=== PATIENT | female | born 1985 | race Caucasian/White ===

== ENCOUNTER 2017-09-07 06:56 | Inpatient (IN) | payer SELFPAY ==
[2017-09-07] MEDS ORDERED: Sodium Chloride 0.9% 10 ML Syringe FLUSH PRN (07:13)
[2017-09-07] MEDS ORDERED: Nalbuphine 20 MG/1 ML Amp IVPUSH PRN (07:13)
[2017-09-07] MEDS ORDERED: Ondansetron 4 MG/2 ML SDV IVPUSH PRN ×2 (07:13→16:17)
--- NOTE | 2017-09-07 07:13 | PCM.LDHP ---
L&D History of Present Illness - General Date of Service: 09/07/17 Admit Problem/Dx: Admission Diagnosis/Problem Admission Diagnosis/Problem Source of Information: Patient History Limitations: Reports: No Limitations - History of Present Illness Introduction:: Patient is a 31-year-old at 40 and 1/7 weeks gestation by 28 week ultrasound which is consistent with patient's anticipated delivery date. She presents today for planned induction of labor. has been uncomplicated other than late entry to care. She is otherwise doing well today with no specific concerns or complaints. 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: : 3 Para: 2 LMP (Approximate): Other OB/BYN History: History of retained placenta with second delivery Social & Family History - Tobacco Use Smoking Status *Q: Never Smoker Second Hand Smoke Exposure: No - Alcohol Use Alcohol Use History: No - Recreational Drug Use Recreational Drug Use: Yes Drug Use in Last 12 Months: No Recreational Drug Type: Reports: Marijuana/Hashish - Living Situation & Occupation Living situation: Reports: H&P Review of Systems - Review of Systems: Review Of Systems: See Below General: Reports: No Symptoms Pulmonary: Reports: No Symptoms Cardiovascular: Reports: No Symptoms Gastrointestinal: Reports: No Symptoms Genitourinary: Reports: No Symptoms Musculoskeletal: Reports: No Symptoms Psychiatric: Reports: No Symptoms Neurological: Reports: No Symptoms L&D Exam - Exam Exam: See Below - OB Specific Contraction Intensity: Irritability Movement: Active Heart Tones: Present Heart Tones per Min: 135 Heart Rate (FHR) Variability: Moderate (6-25 bmp) Presentation: Vertex - Maya Score Maya Score Cervix Position: Midposition Maya Score Consistency: Soft Maya Score Effacement: 51-70% Maya Score Dilation: 3-4 cm Maya Score Infant's Station: -2 Maya Score Total: 8 - Exam General: Alert, Oriented, Cooperative Lungs: Clear to Auscultation, Normal Respiratory Effort Cardiovascular: Regular Rate, Regular Rhythm GI/Abdominal Exam: Soft, Non-Tender Genitourinary: Normal external exam Extremities: Normal Inspection Skin: Warm, Dry, Intact - Patient Data Result Diagrams: 09/07/17 07:40 - Problem List (1) 40 weeks gestation of SNOMED Code(s): 11827900 ICD Code: Z3A.40 - 40 WEEKS GESTATION OF Status: Acute Current Visit: Yes (2) Rh negative state in antepartum period SNOMED Code(s): 915679861 ICD Code: O09.899 - SUPERVISION OF OTHER HIGH RISK PREGNANCIES, UNSP TRIMESTER Status: Acute Current Visit: Yes (3) Elective induction of labor planned SNOMED Code(s): 293194057 ICD Code: [id number] - Status: Acute Current Visit: Yes Problem List Initiated/Reviewed/Updated: Yes Assessment/Plan Comment:: 31-year-old at 40 and 1/7 presents for induction of labor * CBC and type and screen * GBS negative, no need for antibiotics * Reviewed methods of induction and patient prefers AROM with Pitocin only if necessary * Pain management per patient preference * Anticipate
[2017-09-07] MEDS ORDERED: Oxytocin/Lactated Ringers 10 UNIT/1,000 ML BAG IV SCH (13:30)
[2017-09-07] MEDS: Lactated Ringers 1,000 ML IV SCH ×2 (14:05→16:27)
--- NOTE | 2017-09-07 14:06 | PCM.PREANE ---
Preanesthetic Assessment - Anesthesia/Transfusion/Family Hx Anesthesia History: Prior Anesthesia Without Reaction Family History of Anesthesia Reaction: No Transfusion History: No Prior Transfusion(s) - Review of Systems General: No Symptoms Pulmonary: No Symptoms Cardiovascular: No Symptoms Gastrointestinal: No Symptoms Neurological: No Symptoms Other: Reports: None - Physical Assessment NPO Status Date: 09/07/17 NPO Status Time: 12:00 O2 Sat by Pulse Oximetry: 99 Respiratory Rate: 15 Vital Signs: Last Vital Signs Temp 36.6 C 09/07/17 07:13 Pulse 91 09/07/17 07:13 Resp 15 09/07/17 07:13 BP 122/79 09/07/17 07:13 Pulse Ox 99 09/07/17 07:13 Height: 1.8 m Weight: 102.149 kg ASA Class: 2 Mental Status: Alert & Oriented x3 Airway Class: Mallampati = 1 Dentition: Reports: Normal Dentition Thyro-Mental Finger Breadths: 3 Mouth Opening Finger Breadths: 3 ROM/Head Extension: Full Lungs: Clear to Auscultation, Normal Respiratory Effort Cardiovascular: Regular Rate, Regular Rhythm - Lab Values: Laboratory Last Values WBC 7.37 K/mm3 (3.98-10.04) 09/07/17 07:40 RBC 3.94 M/mm3 (3.98-5.22) L 09/07/17 07:40 Hgb 10.6 gm/L (11.2-15.7) L 09/07/17 07:40 Hct 32.5 % (34.1-44.9) L 09/07/17 07:40 MCV 82.5 fl (79.4-94.8) 09/07/17 07:40 MCH 26.9 pg (25.6-32.2) 09/07/17 07:40 MCHC 32.6 g/dl (32.2-35.5) 09/07/17 07:40 RDW Std Deviation 40.6 fL (36.4-46.3) 09/07/17 07:40 Plt Count 221 K/mm3 (182-369) 09/07/17 07:40 MPV 10.4 fl (9.4-12.3) 09/07/17 07:40 Blood Type O NEGATIVE 09/07/17 07:40 Gel Antibody Screen Positive 12/27/17 07:40 - Allergies Allergies/Adverse Reactions: Allergies Allergy/AdvReac Type Severity Reaction Status Date / Time No Known Allergies Allergy Verified 09/07/17 08:09 - Blood Blood Available: No Product(s) Available: None - Anesthesia Plan Pre-Op Medication Ordered: None - Acknowledgements Anesthesia Type Planned: Epidural Pt an Appropriate Candidate for the Planned Anesthesia: Yes Alternatives and Risks of Anesthesia Discussed w Pt/Guardian: Yes Pt/Guardian Understands and Agrees with Anesthesia Plan: Yes PreAnesthesia Questionnaire Genitourinary History: Reports: Other (See Below) 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 OB/BYN History: History of retained placenta with second delivery Psychiatric History: Reports: Eating Disorders - Past Surgical History HEENT Surgical History: Reports: Oral Surgery Other HEENT Surgeries/Procedures: wisdom teeth 2002 - SUBSTANCE USE Smoking Status *Q: Never Smoker Tobacco Use Within Last Twelve Months: No Second Hand Smoke Exposure: No Recreational Drug Use History: Yes Recreational Drug Type: Reports: Marijuana/Hashish - HOME MEDS Home Medications: Home Meds Vit W-Ca,Fe,FA(<1 mg) [ Vitamins] 1 tab PO DAILY 09/07/17 [ History] - CURRENT (IN HOUSE) MEDS Current Meds: Current Medications Lactated Ringer's (Ringers, Lactated) 1,000 mls @ 40 mls/hr IV ASDIRECTED COBY Oxytocin/Lactated Ringer's (Pitocin In Lr 10 Units/1,000 Ml) 10 unit in 1,000 mls @ 12 mls/hr IV TITRATE COBY; 2 MUNITS/MIN PRN Reason: Protocol Nalbuphine HCl (Nubain) 10 mg IVPUSH Q2H PRN PRN Reason: Pain (moderate 4-6) Ondansetron HCl (Zofran) 4 mg IVPUSH Q4H PRN PRN Reason: Nausea/Vomiting Sodium Chloride (Saline Flush) 10 ml FLUSH ASDIRECTED PRN PRN Reason: Keep Vein Open
[2017-09-07] MEDS ORDERED: ePHEDrine 50 MG/ML SDV IVPUSH PRN (16:17)
[2017-09-07] MEDS ORDERED: diphenhydrAMINE 50 MG/ML SDV IVPUSH PRN (16:17)
[2017-09-07] MEDS ORDERED: fentaNYL 100 MCG/2 ML SDV EPIDUR PRN (16:17)
[2017-09-07] MEDS ORDERED: Bupivacaine/fentaNYL/NS 100 ML Bag EPIDUR SCH (16:30)
--- NOTE | 2017-09-07 17:01 | PCM.PNLD ---
Labor Progress Note - VS & Meds Vital Signs: Last Vital Signs Temp 36.6 C 09/07/17 07:13 Pulse 91 09/07/17 07:13 Resp 15 09/07/17 16:17 BP 122/79 09/07/17 07:13 Pulse Ox 99 09/07/17 16:17 Active Medications: Current Medications Diphenhydramine HCl (Benadryl) 25 mg IVPUSH Q6H PRN PRN Reason: Pruritis Ephedrine Sulfate (Ephedrine Sulfate) 5 mg IVPUSH ASDIRECTED PRN PRN Reason: Hypotension Fentanyl (Sublimaze) 100 mcg EPIDUR Q3H PRN PRN Reason: Pain Last Admin: 09/07/17 16:41 Dose: 100 mcg Fentanyl/Bupivacaine HCl (Fentanyl/Bupivacaine/Ns 2 Mcg-0.125% 100 Ml) 100 ml EPIDUR ASDIRECTED COBY Last Admin: 09/07/17 16:42 Dose: 100 ml Lactated Ringer's (Ringers, Lactated) 1,000 mls @ 40 mls/hr IV ASDIRECTED COBY Last Admin: 09/07/17 16:27 Dose: 999 mls/hr Oxytocin/Lactated Ringer's (Pitocin In Lr 10 Units/1,000 Ml) 10 unit in 1,000 mls @ 12 mls/hr IV TITRATE COBY; 2 MUNITS/MIN PRN Reason: Protocol Last Titration: 09/07/17 15:50 Dose: 6 munits/min, 36 mls/hr Nalbuphine HCl (Nubain) 10 mg IVPUSH Q2H PRN PRN Reason: Pain (moderate 4-6) Ondansetron HCl (Zofran) 4 mg IVPUSH Q4H PRN PRN Reason: Nausea/Vomiting Ondansetron HCl (Zofran) 4 mg IVPUSH ONETIME PRN PRN Reason: Nausea/Vomiting Sodium Chloride (Saline Flush) 10 ml FLUSH ASDIRECTED PRN PRN Reason: Keep Vein Open - Uterine Contractions Uterine Monitoring Mode: External [place] Contraction Intensity: Moderate to Strong - Monitoring Monitor Mode: External Ultrasound Heart Rate (FHR) Baseline: 145 Heart Rate (FHR) Variability: Moderate (6-25 bmp) Accelerations: Present, 10x10 (=/<32 wks) Decelerations: Early Strip Review: Category I - Vaginal Exam Dilation (cm): 5 Effacement (Percent): 75 Station: 0 Cervical Position: Midposition - Labor Progress (Free Text) Labor Progress: Doing well. Started pitocin at 1400 and now at 6. Comfortable with epidural. Continue present management
--- NOTE | 2017-09-07 19:06 | PCM.DEL ---
L & D Note - General Info Date of Service: 09/07/17 - Delivery Note Labor: Induced by ARM, Induced by Oxytocin Delivery Outcome: Livebirth Infant Delivery Method: Spontaneous Vaginal Delivery-Single Infant Delivery Mode: Spontaneous Presentation: Left Occiput Anterior (TRICE) Nuchal Cord: Present Anesthesia Type: Epidural Amniotic Fluid Description: Clear Episiotomy Type: None Laceration: None Placenta: Intact, Spontaneous Cord: 3 Vessels Estimated Blood Loss: 350 Resuscitation Needed: Yes : Bulb Syringe, Stimulated, Warmed, [place] Used Score 1 min: 8 Score 5 min: 9 Delivery Comments (Free Text/Narrative):: Patient found to be complete and began pushing. With maternal pushing effort head delivered from an TRICE presentation. Nuchal cord present, but delivered through. With gentle downward traction the shoulders and body delivered. Infant placed on maternal abdomen. Placenta allowed to deliver and the cord clamped and cut. Cord blood obtained from placenta. Inspection of the perineum showed no lacerations. - Patient Data Vitals - Most Recent: Last Vital Signs Temp 36.6 C 09/07/17 07:13 Pulse 91 09/07/17 07:13 Resp 15 09/07/17 16:17 BP 122/79 09/07/17 07:13 Pulse Ox 99 09/07/17 16:17 Weight - Most Recent: 102.149 kg I&O - Last 24 Hours: Intake & Output 09/07/17 09/07/17 09/07/17 06:59 14:59 22:59 Intake Total 0 Balance 0 Lab Results Last 24 Hours: Laboratory Results - last 24 hr 09/07/17 09/07/17 Range/Units 07:40 07:40 WBC 7.37 (3.98-10.04) K/mm3 RBC 3.94 L (3.98-5.22) M/mm3 Hgb 10.6 L (11.2-15.7) gm/L Hct 32.5 L (34.1-44.9) % MCV 82.5 (79.4-94.8) fl MCH 26.9 (25.6-32.2) pg MCHC 32.6 (32.2-35.5) g/dl RDW Std Deviation 40.6 (36.4-46.3) fL Plt Count 221 (182-369) K/mm3 MPV 10.4 (9.4-12.3) fl Blood Type O NEGATIVE Gel Antibody Screen Positive Med Orders - Current: Current Medications Diphenhydramine HCl (Benadryl) 25 mg IVPUSH Q6H PRN PRN Reason: Pruritis Ephedrine Sulfate (Ephedrine Sulfate) 5 mg IVPUSH ASDIRECTED PRN PRN Reason: Hypotension Fentanyl (Sublimaze) 100 mcg EPIDUR Q3H PRN PRN Reason: Pain Last Admin: 09/07/17 16:41 Dose: 100 mcg Fentanyl/Bupivacaine HCl (Fentanyl/Bupivacaine/Ns 2 Mcg-0.125% 100 Ml) 100 ml EPIDUR ASDIRECTED COBY Last Admin: 09/07/17 16:42 Dose: 100 ml Lactated Ringer's (Ringers, Lactated) 1,000 mls @ 40 mls/hr IV ASDIRECTED COBY Last Admin: 09/07/17 16:27 Dose: 999 mls/hr Oxytocin/Lactated Ringer's (Pitocin In Lr 10 Units/1,000 Ml) 10 unit in 1,000 mls @ 12 mls/hr IV TITRATE COBY; 2 MUNITS/MIN PRN Reason: Protocol Last Titration: 09/07/17 15:50 Dose: 6 munits/min, 36 mls/hr Nalbuphine HCl (Nubain) 10 mg IVPUSH Q2H PRN PRN Reason: Pain (moderate 4-6) Ondansetron HCl (Zofran) 4 mg IVPUSH Q4H PRN PRN Reason: Nausea/Vomiting Ondansetron HCl (Zofran) 4 mg IVPUSH ONETIME PRN PRN Reason: Nausea/Vomiting Sodium Chloride (Saline Flush) 10 ml FLUSH ASDIRECTED PRN PRN Reason: Keep Vein Open - Problem List & Annotations (1) 40 weeks gestation of SNOMED Code(s): 99391411 Code(s): Z3A.40 - 40 WEEKS GESTATION OF Status: Acute Current Visit: Yes (2) Rh negative state in antepartum period SNOMED Code(s): 116716931 Code(s): O09.899 - SUPERVISION OF OTHER HIGH RISK PREGNANCIES, UNSP TRIMESTER Status: Acute Current Visit: Yes (3) Elective induction of labor planned SNOMED Code(s): 493808037 Code(s): DCQ0368 - Status: Acute Current Visit: Yes (4) Vaginal delivery SNOMED Code(s): 161894224 Code(s): O80 - ENCOUNTER FOR FULL-TERM UNCOMPLICATED DELIVERY Status: Acute Current Visit: Yes - Problem List Review Problem List Initiated/Reviewed/Updated: Yes - My Orders Last 24 Hours: My Active Orders 09/07/17 07:13 Nalbuphine [Nubain] 10 mg IVPUSH Q2H PRN Ondansetron [Zofran] 4 mg IVPUSH Q4H PRN Sodium Chloride 0.9% [Saline Flush] 10 ml FLUSH ASDIRECTED PRN Electronic Heart Tones Ext w TOCO [WOMSER] Routine Electronic Heart Tones Internal [WOMSER] Per Unit Routine Peripheral IV Insertion Adult [OM.PC] Routine Resuscitation Status Routine 09/07/17 07:14 Patient Status [ADT] Routine Peripheral IV Care [RC] . DIRECTED 09/07/17 07:15 Lactated Ringers [Ringers, Lactated] 1,000 ml IV ASDIRECTED 09/07/17 07:40 ANTIBODY IDENTIFICATION [BBK] Routine TYPE AND SCREEN [BBK] Routine 09/07/17 13:30 Oxytocin/Lactated Ringers [Pitocin in LR 10 Units/1,000 ML] 10 unit in 1,000 ml IV TITRATE 09/07/17 Breakfast Regular Diet [DIET] - Assessment Assessment:: 31-year-old G3 now P3003 PPD#0 from at 40 and 1/7 wks - Plan Plan:: * Routine cares * Encourage breast feeding * Will assess baby blood type to see if Rhogam required * Discharge home in 1-2 days
[2017-09-07] MEDS ORDERED: Ibuprofen 600 MG Tab PO PRN (21:43)
[2017-09-07] MEDS ORDERED: Acetaminophen 325 MG Tab PO PRN (21:43)
[2017-09-07] MEDS ORDERED: Witch Hazel Medicated Pads 100/Jar TOP PRN (21:43)
[2017-09-07] MEDS ORDERED: Lanolin 100% Cream 7 GM Tube TOP PRN (21:43)
[2017-09-07] MEDS ORDERED: Benzocaine/Menthol 20%-0.5% Spray 56 GM Canister TOP PRN (21:43)
[2017-09-07] MEDS ORDERED: Docusate Sodium 100 MG Cap PO PRN (21:43)
[2017-09-07] MEDS ORDERED: Bupivacaine 0.25% 10 ML SDV ONE (22:22)
--- NOTE | 2017-09-08 07:25 | PCM.PNPP ---
- General Info Date of Service: 09/08/17 Functional Status: Reports: Pain Controlled, Tolerating Diet, Ambulating, Urinating - Review of Systems General: Reports: No Symptoms Pulmonary: Reports: No Symptoms Cardiovascular: Reports: No Symptoms Gastrointestinal: Reports: No Symptoms Genitourinary: Reports: No Symptoms Musculoskeletal: Reports: No Symptoms - Patient Data Vital Signs - Most Recent: Last Vital Signs Temp 36.6 C 09/07/17 07:13 Pulse 91 09/07/17 07:13 Resp 15 09/07/17 16:17 BP 122/79 09/07/17 07:13 Pulse Ox 99 09/07/17 16:17 Weight - Most Recent: 102.149 kg Lab Results - Last 24 Hours: Laboratory Results - last 24 hr 09/07/17 09/07/17 Range/Units 07:40 07:40 WBC 7.37 (3.98-10.04) K/mm3 RBC 3.94 L (3.98-5.22) M/mm3 Hgb 10.6 L (11.2-15.7) gm/L Hct 32.5 L (34.1-44.9) % MCV 82.5 (79.4-94.8) fl MCH 26.9 (25.6-32.2) pg MCHC 32.6 (32.2-35.5) g/dl RDW Std Deviation 40.6 (36.4-46.3) fL Plt Count 221 (182-369) K/mm3 MPV 10.4 (9.4-12.3) fl Blood Type O NEGATIVE Gel Antibody Screen Positive Med Orders - Current: Current Medications Acetaminophen (Tylenol) 650 mg PO Q4H PRN PRN Reason: mild pain or fever Benzocaine/Menthol (Dermoplast Pain Relief [place]) 0 gm TOP ASDIRECTED PRN PRN Reason: Perineal Comfort Measure Docusate Sodium (Colace) 100 mg PO BID PRN PRN Reason: Constipation Emollient Ointment (Lansinoh Hpa) 0 gm TOP ASDIRECTED PRN PRN Reason: Sore Nipples Ibuprofen (Motrin) 600 mg PO Q4H PRN PRN Reason: Mild pain or fever Last Admin: 09/08/17 03:17 Dose: 600 mg Witch Judit (Tucks) 1 pad TOP ASDIRECTED PRN PRN Reason: Hemorrhoid pain Discontinued Medications Diphenhydramine HCl (Benadryl) 25 mg IVPUSH Q6H PRN PRN Reason: Pruritis Ephedrine Sulfate (Ephedrine Sulfate) 5 mg IVPUSH ASDIRECTED PRN PRN Reason: Hypotension Fentanyl (Sublimaze) 100 mcg EPIDUR Q3H PRN PRN Reason: Pain Last Admin: 09/07/17 16:41 Dose: 100 mcg Fentanyl/Bupivacaine HCl (Fentanyl/Bupivacaine/Ns 2 Mcg-0.125% 100 Ml) 100 ml EPIDUR ASDIRECTED COBY Last Admin: 09/07/17 16:42 Dose: 100 ml Lactated Ringer's (Ringers, Lactated) 1,000 mls @ 40 mls/hr IV ASDIRECTED COBY Last Admin: 09/07/17 16:27 Dose: 999 mls/hr Oxytocin/Lactated Ringer's (Pitocin In Lr 10 Units/1,000 Ml) 10 unit in 1,000 mls @ 12 mls/hr IV TITRATE COBY; 2 MUNITS/MIN PRN Reason: Protocol Last Titration: 09/07/17 15:50 Dose: 6 munits/min, 36 mls/hr Nalbuphine HCl (Nubain) 10 mg IVPUSH Q2H PRN PRN Reason: Pain (moderate 4-6) Ondansetron HCl (Zofran) 4 mg IVPUSH Q4H PRN PRN Reason: Nausea/Vomiting Ondansetron HCl (Zofran) 4 mg IVPUSH ONETIME PRN PRN Reason: Nausea/Vomiting Sodium Chloride (Saline Flush) 10 ml FLUSH ASDIRECTED PRN PRN Reason: Keep Vein Open - Interaction Infant Disposition, : to Nursery Interaction: To Nursery to Visit Infant Infant Feeding: Attempted ; Nursed Fair/Poor Support Person: - Recovery Exam Fundal Tone: Firm Fundal Level: 1 Fingerbreadths Below Umbilicus Lochia Amount: Small Lochia Color: Rubra/Red Bladder Status: Voiding - Exam General: Alert, Oriented, Cooperative GI/Abdominal Exam: Soft, Non-Tender Extremities: Normal Inspection Skin: Warm, Dry, Intact - Problem List & Annotations (1) 40 weeks gestation of SNOMED Code(s): 15828910 Code(s): Z3A.40 - 40 WEEKS GESTATION OF Status: Acute Current Visit: Yes (2) Rh negative state in antepartum period SNOMED Code(s): 089549644 Code(s): O09.899 - SUPERVISION OF OTHER HIGH RISK PREGNANCIES, UNSP TRIMESTER Status: Acute Current Visit: Yes (3) Elective induction of labor planned SNOMED Code(s): 752165096 Code(s): FHY8570 - Status: Acute Current Visit: Yes (4) Vaginal delivery SNOMED Code(s): 410479135 Code(s): O80 - ENCOUNTER FOR FULL-TERM UNCOMPLICATED DELIVERY Status: Acute Current Visit: Yes - Problem List Review Problem List Initiated/Reviewed/Updated: Yes - My Orders Last 24 Hours: My Active Orders 09/07/17 07:13 Resuscitation Status Routine 09/07/17 07:40 ANTIBODY IDENTIFICATION [BBK] Routine TYPE AND SCREEN [BBK] Routine 09/07/17 21:43 Activity as Tolerated [RC] .PRN Vital Signs [RC] 04,12,20 Acetaminophen [Tylenol] 650 mg PO Q4H PRN Benzocaine/Menthol [Dermoplast Pain Relief [place]] See Dose Instructions TOP ASDIRECTED PRN Docusate Sodium [Colace] 100 mg PO BID PRN Ibuprofen [Motrin] 600 mg PO Q4H PRN Lanolin [Lansinoh HPA] See Dose Instructions TOP ASDIRECTED PRN Witch Judit [Tucks] 1 pad TOP ASDIRECTED PRN Assess Lochia [WOMSER] Per Unit Routine Assess Uterine Involution [WOMSER] Per Unit Routine Breast Pump [WOMSER] Per Unit Routine Heat Therapy [OM.PC] PRN Ice Therapy [OM.PC] Per Unit Routine Perineal Care [OM.PC] Per Unit Routine Peripheral IV Discontinue [OM.PC] Routine Sitz Bath [OM.PC] Per Unit Routine 09/07/17 Dinner Regular Diet [DIET] 09/08/17 21:43 Heat Therapy [OM.PC] PRN - Assessment Assessment:: 31-year-old G3 now P3003 PPD#1 from at 40 and 1/7 wks - Plan Plan:: * Routine cares * Encourage breast feeding * Baby O negative, no need for Rhogam * Discharge today per patient preference for insurance reasons * Baby remains in house. Was made level 2 last night for respiratory distress.
--- NOTE | 2017-09-08 07:27 | PCM.DCSUM1 ---
Discharge Summary - Discharge Data Discharge Date: 09/08/17 Discharge Disposition: Home, Self-Care 01 Condition: Good - Discharge Diagnosis/Problem(s) (1) 40 weeks gestation of SNOMED Code(s): 83080450 ICD Code: Z3A.40 - 40 WEEKS GESTATION OF Status: Acute Current Visit: Yes (2) Rh negative state in antepartum period SNOMED Code(s): 154610504 ICD Code: O09.899 - SUPERVISION OF OTHER HIGH RISK PREGNANCIES, UNSP TRIMESTER Status: Acute Current Visit: Yes (3) Elective induction of labor planned SNOMED Code(s): 721781944 ICD Code: LJG8637 - Status: Acute Current Visit: Yes (4) Vaginal delivery SNOMED Code(s): 521812037 ICD Code: O80 - ENCOUNTER FOR FULL-TERM UNCOMPLICATED DELIVERY Status: Acute Current Visit: Yes - Patient Summary/Data Operative Procedure(s) Performed: None Complications: None Consults: None Recommended Follow-up Testing/Procedures: Follow up in 5-6 weeks for check Hospital Course: Patient is a 31 y/o at 40 1/7 wks who presented for IOL. This was done with AROM/pitocin. She progressed well to complete dilation and underwent an uncomplicated . See delivery note. she did well and was discharged home on PPD#1 - Patient Instructions Diet: Regular Diet as Tolerated Activity: As Tolerated Activity, Other: Pelvic Rest for 6 weeks Driving: May Drive Today Showering/Bathing: May Shower Showering/Bathing, Other: May Bathe Wound/Incision Care: Keep Operative Site/Wound Site Clean and Dry Notify Provider of: Fever, Increased Pain, Swelling and Redness, Drainage, Nausea and/or Vomiting - Discharge Plan Home Medications: Home Meds Vit W-Ca,Fe,FA(<1 mg) [ Vitamins] 1 tab PO DAILY 09/07/17 [ History] Docusate Sodium [Colace] 100 mg PO BID PRN cap 09/08/17 [Rx] Ibuprofen [IJD: Ibuprofen] 600 mg PO Q4H PRN tablet 09/08/17 [Rx] Patient Handouts: Mastitis, Breast Pumping Tips, Home Care Instructions for Mom , Breast Engorgement Referrals: Patricia Rhodes MD [Physician] - (5-6 weeks for check ) - Discharge Summary/Plan Comment DC Time >30 min.: No - Patient Data Vitals - Most Recent: Last Vital Signs Temp 36.6 C 09/07/17 07:13 Pulse 91 09/07/17 07:13 Resp 15 09/07/17 16:17 BP 122/79 09/07/17 07:13 Pulse Ox 99 09/07/17 16:17 Weight - Most Recent: 102.149 kg Lab Results - Last 24 hrs: Laboratory Results - last 24 hr 09/07/17 09/07/17 Range/Units 07:40 07:40 WBC 7.37 (3.98-10.04) K/mm3 RBC 3.94 L (3.98-5.22) M/mm3 Hgb 10.6 L (11.2-15.7) gm/L Hct 32.5 L (34.1-44.9) % MCV 82.5 (79.4-94.8) fl MCH 26.9 (25.6-32.2) pg MCHC 32.6 (32.2-35.5) g/dl RDW Std Deviation 40.6 (36.4-46.3) fL Plt Count 221 (182-369) K/mm3 MPV 10.4 (9.4-12.3) fl Blood Type O NEGATIVE Gel Antibody Screen Positive Med Orders - Current: Current Medications Acetaminophen (Tylenol) 650 mg PO Q4H PRN PRN Reason: mild pain or fever Benzocaine/Menthol (Dermoplast Pain Relief [place]) 0 gm TOP ASDIRECTED PRN PRN Reason: Perineal Comfort Measure Docusate Sodium (Colace) 100 mg PO BID PRN PRN Reason: Constipation Emollient Ointment (Lansinoh Hpa) 0 gm TOP ASDIRECTED PRN PRN Reason: Sore Nipples Ibuprofen (Motrin) 600 mg PO Q4H PRN PRN Reason: Mild pain or fever Last Admin: 09/08/17 03:17 Dose: 600 mg Witch Judit (Tucks) 1 pad TOP ASDIRECTED PRN PRN Reason: Hemorrhoid pain Discontinued Medications Diphenhydramine HCl (Benadryl) 25 mg IVPUSH Q6H PRN PRN Reason: Pruritis Ephedrine Sulfate (Ephedrine Sulfate) 5 mg IVPUSH ASDIRECTED PRN PRN Reason: Hypotension Fentanyl (Sublimaze) 100 mcg EPIDUR Q3H PRN PRN Reason: Pain Last Admin: 09/07/17 16:41 Dose: 100 mcg Fentanyl/Bupivacaine HCl (Fentanyl/Bupivacaine/Ns 2 Mcg-0.125% 100 Ml) 100 ml EPIDUR ASDIRECTED COBY Last Admin: 09/07/17 16:42 Dose: 100 ml Lactated Ringer's (Ringers, Lactated) 1,000 mls @ 40 mls/hr IV ASDIRECTED COBY Last Admin: 09/07/17 16:27 Dose: 999 mls/hr Oxytocin/Lactated Ringer's (Pitocin In Lr 10 Units/1,000 Ml) 10 unit in 1,000 mls @ 12 mls/hr IV TITRATE COBY; 2 MUNITS/MIN PRN Reason: Protocol Last Titration: 09/07/17 15:50 Dose: 6 munits/min, 36 mls/hr Nalbuphine HCl (Nubain) 10 mg IVPUSH Q2H PRN PRN Reason: Pain (moderate 4-6) Ondansetron HCl (Zofran) 4 mg IVPUSH Q4H PRN PRN Reason: Nausea/Vomiting Ondansetron HCl (Zofran) 4 mg IVPUSH ONETIME PRN PRN Reason: Nausea/Vomiting Sodium Chloride (Saline Flush) 10 ml FLUSH ASDIRECTED PRN PRN Reason: Keep Vein Open *Q Meaningful Use (DIS) - VTE *Q VTE Criteria *Q: - Stroke *Q Stroke Criteria *Q: - AMI *Q AMI Criteria *Q:
--- NOTE | 2017-09-08 08:36 | PCM48HPAN ---
Post Anesthesia Note - EVALUATION WITHIN 48HRS OF ANESTHETIC Vital Signs in Normal Range: Yes Patient Participated in Evaluation: Yes Respiratory Function Stable: Yes Airway Patent: Yes Cardiovascular Function Stable: Yes Hydration Status Stable: Yes Pain Control Satisfactory: Yes Nausea and Vomiting Control Satisfactory: Yes Mental Status Recovered: Yes
[2017-09-08 12:32] VITALS: BP 128/63
== END 2017-09-08 13:09 | disposition home or self-care (01) | DRG 775 ==
LOC: JD.OB 06:56 → OBSVTOIN 18:53
PROVIDERS: ADMIT Obstetrics & Gynecology; ATTEND Obstetrics & Gynecology
PROC: 10E0XZZ Delivery of Products of Conception, External Approach (ICD-10-PCS; principal; 2017-09-07)
PROC: 3E0P3VZ Introduction of Hormone into Female Reproductive, Percutaneous Approach (ICD-10-PCS; 2017-09-07)
PROC: 10907ZC Drainage of Amniotic Fluid, Therapeutic from Products of Conception, Via Natural or Artificial Opening (ICD-10-PCS; 2017-09-07)
PROC: 00HU33Z Insertion of Infusion Device into Spinal Canal, Percutaneous Approach (ICD-10-PCS; 2017-09-07)
PROC: 3E0R3BZ Introduction of Anesthetic Agent into Spinal Canal, Percutaneous Approach (ICD-10-PCS; 2017-09-07)
DX: O69.81X0 Labor and delivery complicated by cord around neck, without compression, not applicable or unspecified (principal); Z3A.40 40 weeks gestation of pregnancy; Z37.0 Single live birth
CPT/HCPCS: 01967; 36415; 51702; 59409; 85027; 86850; 86870; 86900; 86901; A9270-GY; J2590; J3010; J7120

== ENCOUNTER 2018-09-09 09:43 | Emergency (ER) | payer SELFPAY ==
--- NOTE | 2018-09-09 10:45 | EDM.PDOC ---
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 She believes that she conceived on 07/30/2018. . She states that she developed some vaginal bleeding and pelvic cramping on 09/04/2018. She was seen in this ED that same day, where a transvaginal ultrasound was read as: 1. Single intrauterine gestation. Dates as noted above. (6 weeks 1 day) 2. Low heart activity which is felt to relate to early gestational age. 3. No etiology is identified for the patient's bleeding noted in the clinical history. The patient received RhoGAM during her ED visit. The patient then followed up with her Convenience Store Manager, Dr. Rhodes, yesterday, 09/08/2018. The patient states that a pelvic exam was performed, and that her cervix was closed. The patient now returns to the ED stating that she redeveloped vaginal bleeding and pelvic pain around 07:00 this morning. She was soaking about 1 pad per hour for 3 hours. She passed some tissue that she is concerned might be a fetus, around 09:30, and that since then, the cramping has ceased, and the bleeding has diminished. She brought the tissue in with her. She has had nausea. She feels dizzy when she stands. The patient does not have a PCP. 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 Psychiatric History: Reports: Eating Disorders - Infectious Disease History Infectious Disease History: Reports: Human Papilloma Virus (HPV) - Past Surgical History HEENT Surgical History: Reports: Oral Surgery (wisdom teeth extracted 2002) GI Surgical History: Reports: Colonoscopy Female Surgical History: Reports: Breast Reduction Social & Family History - Family History Family Medical History: Noncontributory - Tobacco Use Smoking Status *Q: Former Smoker Month/Year Tobacco Last Used: Quit around 2002 - Caffeine Use Caffeine Use: Reports: Coffee - Alcohol Use Alcohol Use History: Yes Alcohol Use Frequency: Socially (not while ) - Recreational Drug Use Recreational Drug Use: Yes Drug Use in Last 12 Months: No Recreational Drug Type: Reports: Marijuana/Hashish (smoked between 18 and 21 years old) - Living Situation & Occupation Living situation: Reports: , with Spouse, with Family (3 sons) Occupation: Unemployed ED ROS GENERAL - Review of Systems Review Of Systems: ROS reveals no pertinent complaints other than HPI. ED EXAM - Physical Exam Exam: See Below Exam Limited By: No Limitations General Appearance: Alert, WD/WN, No Apparent Distress Eye Exam: Bilateral Eye: EOMI, Normal Inspection Ears: Normal External Exam, Hearing Grossly Normal Nose: Normal Inspection Throat/Mouth: Normal Inspection, Normal Lips, Normal Voice, No Airway Compromise Head: Atraumatic, Normocephalic Neck: Normal Inspection, Full Range of Motion Respiratory/Chest: No Respiratory Distress, Lungs Clear, Normal Breath Sounds, No Accessory Muscle Use Cardiovascular: Normal Peripheral Pulses, Regular Rate, Rhythm, No Gallop, No JVD, No Murmur, No Rub GI/Abdominal Exam: Normal Bowel Sounds, Soft, No Organomegaly, No Distention, No Abnormal Bruit, No Mass, Pelvis Stable, Tender (suprapubic only. Nontender elsewhere.) (Female) Exam: Normal Bimanual Exam, Normal External Exam, Normal Speculum Exam, Other (Multiparous cervix open only 2 or 3 mm with clot seen in canal, but no active bleeding. No tissure seen.) Back Exam: Normal Inspection, Full Range of Motion Extremities: Normal Inspection, Normal Range of Motion, Normal Capillary Refill Neurological: Alert, Oriented, Normal Cognition, No Motor/Sensory Deficits Psychiatric: Normal Affect Skin Exam: Warm, Dry, Intact, Normal Color, No Rash Course - Vital Signs Last Recorded V/S: Last Vital Signs Temp 36.2 C 09/09/18 10:08 Pulse 85 09/09/18 12:45 Resp 18 09/09/18 12:45 BP 120/86 09/09/18 12:45 Pulse Ox 99 09/09/18 12:45 Orthostatic Blood Pressure [ 99/66 Standing] Orthostatic Blood Pressure [ 114/74 Supine] - Orders/Labs/Meds Labs: Laboratory Tests 09/09/18 Range/Units 10:50 WBC 5.31 (3.98-10.04) K/mm3 RBC 4.38 (3.98-5.22) M/mm3 Hgb 12.7 (11.2-15.7) gm/L Hct 37.0 (34.1-44.9) % MCV 84.5 (79.4-94.8) fl MCH 29.0 (25.6-32.2) pg MCHC 34.3 (32.2-35.5) g/dl RDW Std Deviation 36.9 (36.4-46.3) fL Plt Count 266 (182-369) K/mm3 MPV 9.5 (9.4-12.3) fl Neutrophils % (Manual) 44 (40-60) % Band Neutrophils % 0 (0-10) % Lymphocytes % (Manual) 53 H (20-40) % Atypical Lymphs % 0 % Monocytes % (Manual) 3 (2-10) % Eosinophils % (Manual) 0 L (0.7-5.8) % Basophils % (Manual) 0 L (0.1-1.2) Platelet Estimate Adequate Plt Morphology Comment Normal RBC Morph Comment Normal - Re-Assessments/Exams Free Text/Narrative Re-Assessment/Exam: 09/09/18 10:35 The patient is not orthostatic. The patient and her brought in the tissue that she passed. It appears to be a placenta with products of conception. I will perform a pelvic examination, to look at the patient's cervix. I will order an ultrasound to confirm no retained products of conception. 09/09/18 10:45 The cervical os appears to be open a few millimeters, with some blood clot present within the canal. No tissue was visible. 09/09/18 12:20 Transvaginal ultrasound is read by Dr. Siegel as: 1. Previous gestational sac no longer seen compatible with miscarriage. 2. Slightly inhomogeneous endometrial stripe either representing minimal blood clot or minimal retained products of conception. 09/09/18 12:[address] Brown at 12:21. At this point, it appears that the patient has completed her spontaneous . Because the patient received RhoGAM on 09/04/2018, he does not feel that she requires additional treatment. The patient may be discharged home, to follow-up with Dr. Rhodes. Departure - Departure Time of Disposition: 12:28 Disposition: Home, Self-Care 01 Condition: Good Clinical Impression: Spontaneous with hemorrhage, complete - Discharge Information *PRESCRIPTION DRUG MONITORING PROGRAM REVIEWED*: Not Applicable *COPY OF PRESCRIPTION DRUG MONITORING REPORT IN PATIENT YAMEL: Not Applicable Instructions: Miscarriage, [id number], Miscarriage Referrals: Patricia Rhodes MD [Primary Care Provider] - Forms: ED Department Discharge Additional Instructions: You were seen in the emergency room for vaginal bleeding, pelvic cramping, and passing tissue, while about 7 weeks . Workup in the ER included a CBC, positional blood pressure checks, and a transvaginal ultrasound. Your CBC was relatively normal - you are not significantly anemic. Your blood pressure maintained itself between lying and standing - you are not intravascularly depleted. The ultrasound found that you have passed the gestational sac that was seen on the ultrasound of 09/04/2018. This confirmed that you have had a miscarriage. Your case was discussed with the OB/Gyne Dr. Brown. He did not feel that you need additional RhoGAM. You should expect to have a diminishing amount of vaginal bleeding and pelvic cramping over the next few days. You may take [id number] ibuprofen, 2-3 tablets (400-600 mg) every 8 hours, with food, as needed for discomfort. Please notify the office of your Convenience Store Manager, Dr. Rhodes, of this event, Tuesday. If any other problems, please do not hesitate to return to the ER.
--- NOTE | 2018-09-09 11:54 | US ---
First trimester obstetrical ultrasound: Multiple real-time images were obtained transvaginally. Comparison: Previous obstetrical ultrasound of 09/04/18. Previous gestational sac is no longer seen. Findings are compatible with miscarriage. Endometrial stripe is slightly inhomogeneous most likely representing minimal blood clot or minimal retained products of conception. No myometrial abnormality is seen. Uterus is anteverted. Follicles are seen within both ovaries. Impression: 1. Previous gestational sac no longer seen compatible with miscarriage. 2. Slightly inhomogeneous endometrial stripe either representing minimal blood clot or minimal retained products of conception. Diagnostic code #3
[2018-09-09 12:45] VITALS: BP 120/86
== END 2018-09-09 12:44 | disposition home or self-care (01) ==
LOC: JD.ED 09:43
DX: O03.9 Complete or unspecified spontaneous abortion without complication (principal); Z79.899 Other long term (current) drug therapy
CPT/HCPCS: 36415; 76817; 76817-26; 85007; 85027; 99284-25

== ENCOUNTER 2019-06-18 07:07 | Inpatient (IN) | payer SELFPAY ==
[~2019-06-18 07:07] MED LIST: Bupivacaine 0.25% 10 ML SDV ONE
[2019-06-18] MEDS ORDERED: Oxytocin/Lactated Ringers 10 UNIT/1,000 ML BAG IV SCH ×2 (07:30→12:00)
[2019-06-18] MEDS ORDERED: Ondansetron 4 MG/2 ML SDV IVPUSH PRN (07:30)
[2019-06-18] MEDS ORDERED: Sodium Chloride 0.9% 10 ML Syringe FLUSH PRN (07:30)
[2019-06-18] MEDS ORDERED: Nalbuphine 10 MG/1 ML Vial IVPUSH PRN (07:30)
--- NOTE | 2019-06-18 07:43 | PCM.LDHP ---
L&D History of Present Illness - General Date of Service: 06/18/19 Admit Problem/Dx: Patient Status Order with Admit Dx/Problem 06/18/19 07:30 Patient Status [ADT] Routine Admission Diagnosis/Problem Admission Diagnosis/Problem Term Source of Information: Patient History Limitations: Reports: No Limitations - History of Present Illness Introduction:: 33 yo A1 female at 39+5 weeks admitted for induction of labor. 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 She is admitted so that we can get at least 2 doses of IV antibiotic infused prior to delivery. SHe also has low back and sciatic pain and would not be able to push in the usual lithotomy position unless she has an epidural. Her labs reveal blood type O positive with initial antibody screen positive, but she had received Rhogam with her miscarriage in 08/2018. Her antibody screen on was negative and she received Rhogam on 04/24/19. Infectious disease tests were all negative. Her 1 hour glucola was 129 and A1C was 5.0 in January 2019. I did not do a GBS test at 36 weeks since we would be treating her prophylactically anyway. She denies feeling contractions and membranes intact on admit today. 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: (Miscarriage 09/08/2018, at 40 weeks with 9 lb baby and developed GBS meningitis, at 38 weeks 07/14/16 with 8 lb 6oz baby and at 40 weeks 07/08/15 with 8 lb 6 oz baby) : 5 Para: 3 Other OB/BYN History: History of retained placenta with second delivery Psychiatric History: Reports: Eating Disorders - Infectious Disease History Infectious Disease History: Reports: Human Papilloma Virus (HPV) - Past Surgical History HEENT Surgical History: Reports: Oral Surgery (wisdom teeth extracted 2002) GI Surgical History: Reports: Colonoscopy Female Surgical History: Reports: Breast Reduction Social & Family History - Family History Family Medical History: Noncontributory - Caffeine Use Caffeine Use: Reports: Coffee - Living Situation & Occupation Living situation: Reports: , with Spouse, with Family (3 sons) Occupation: Unemployed H&P Review of Systems - Review of Systems: Review Of Systems: See Below General: Reports: No Symptoms HEENT: Reports: No Symptoms Pulmonary: Reports: No Symptoms Cardiovascular: Reports: No Symptoms Gastrointestinal: Reports: No Symptoms Genitourinary: Reports: No Symptoms Musculoskeletal: Reports: Back Pain Skin: Reports: No Symptoms Psychiatric: Reports: No Symptoms Neurological: Reports: No Symptoms Hematologic/Lymphatic: Reports: No Symptoms Immunologic: Reports: No Symptoms L&D Exam - Exam Exam: See Below - OB Specific Contraction Intensity: Irritability Movement: Active Heart Tones: Present Heart Tones per Min: 145 Heart Rate (FHR) Variability: Moderate (6-25 bmp) Presentation: Vertex Estimated Weight: 8 lb - Maya Score Maya Score Cervix Position: Anterior Maya Score Consistency: Soft Maya Score Effacement: >80% Maya Score Dilation: 3-4 cm Maya Score 's Station: -2 Maya Score Total: 10 - Exam General: Alert, Oriented HEENT: Conjunctiva Clear, EOMI Neck: Supple, Trachea Midline Lungs: Normal Respiratory Effort Cardiovascular: Regular Rate, Regular Rhythm GI/Abdominal Exam: Soft Rectal Exam: Deferred Genitourinary: Normal external exam Back Exam: Normal Inspection Skin: Warm, Dry, Intact Neurological: Cranial Nerves Intact Psychiatric: Alert, Normal Affect, Normal Mood - Patient Data Result Diagrams: 06/18/19 07:50 - Problem List (1) 39 weeks gestation of SNOMED Code(s): 16178442 ICD Code: Z3A.39 - 39 WEEKS GESTATION OF Status: Acute Current Visit: Yes (2) Elective induction of labor planned SNOMED Code(s): 255406740 ICD Code: [id number] - Status: Acute Current Visit: No (3) Rh negative state in antepartum period SNOMED Code(s): 373164617 ICD Code: O09.899 - SUPERVISION OF OTHER HIGH RISK PREGNANCIES, UNSP TRIMESTER Status: Acute Current Visit: No Problem List Initiated/Reviewed/Updated: Yes Orders Last 24hrs: Active Orders 24 hr Category Date Time Status Patient Status [ADT] Routine ADT 06/18/19 07:30 Ordered Activity as Tolerated [RC] PFP Care 06/18/19 07:30 Ordered Communication Order [RC] ASDIRECTED Care 06/18/19 07:30 Ordered Heart Tones [RC] ASDIRECTED Care 06/18/19 07:31 Ordered Non Stress Test [RC] PER UNIT ROUTINE Care 06/18/19 07:30 Ordered Notify Provider [RC] PFP Care 06/18/19 07:30 Ordered Notify Provider [RC] PRN Care 06/18/19 07:30 Ordered Peripheral IV Care [RC] . DIRECTED Care 06/18/19 07:31 Ordered Vital Signs [RC] PER UNIT ROUTINE Care 06/18/19 07:30 Ordered Regular Diet [DIET] Diet 06/18/19 Breakfast Ordered CBC W/O DIFF,HEMOGRAM [HEME] Stat Lab 06/18/19 07:30 Ordered RAPID PLASMA REAGIN,RPR [CHEM] Routine Lab 06/18/19 07:30 Ordered TYPE AND SCREEN [BBK] Stat Lab 06/18/19 07:30 Ordered UA W/MICROSCOPIC [URIN] Stat Lab 06/18/19 07:30 Ordered Lactated Ringers [Ringers, Lactated] 1,000 ml Med 06/18/19 07:30 Ordered IV ASDIRECTED Nalbuphine [Nubain] Med 06/18/19 07:30 Ordered 10 mg IVPUSH Q2H PRN Ondansetron [Zofran] Med 06/18/19 07:30 Ordered 4 mg IVPUSH Q4H PRN Oxytocin/Lactated Ringers [Pitocin in LR 10 Units/1,000 Med 06/18/19 07:30 Ordered ML] 10 unit in 1,000 ml IV .CONTINUOUS Oxytocin/Lactated Ringers [Pitocin in LR 10 Units/1,000 Med 06/18/19 12:00 Ordered ML] 10 unit in 1,000 ml IV TITRATE Penicillin G Potassium [Pfizerpen] 2.5 millunits Med 06/18/19 07:30 Ordered Sodium Chloride 0.9% [Normal Saline] 100 ml IV Q4H Penicillin G Potassium [Pfizerpen] 5 millunits Med 06/18/19 07:30 Ordered Sodium Chloride 0.9% [Normal Saline] 100 ml IV ONETIME Sodium Chloride 0.9% [Saline Flush] Med 06/18/19 07:30 Ordered 10 ml FLUSH ASDIRECTED PRN Electronic Heart Tones Ext w TOCO [WOMSER] Ot 06/18/19 07:30 Ordered Routine Electronic Heart Tones Internal [WOMSER] Per Unit Ot 06/18/19 07:30 Ordered Routine Peripheral IV Insertion Adult [OM.PC] Routine Ot 06/18/19 07:30 Ordered Resuscitation Status Routine Resus Stat 06/18/19 07:30 Ordered Assessment/Plan Comment:: 33 yo A1 female and 39+5 weeks admitted for induction of labor. She has a history of quick labors and with last developing GBS meningitis, we want to get at least 2 doses of IV Pen G for GBS prophylaxis infused before delivery. Cervix 3 cm, 80% effaced, vertex presentation on admit. Plan: Start Pen G IV 5MU and then 2.5 MU in 4 hours. After second dose infused , will start pitocin for induction and plan early epidural so that patient will be comfortable to push.
[2019-06-18] MEDS: Lactated Ringers 1,000 ML IV SCH ×3 (08:17→16:18)
[2019-06-18] MEDS ORDERED: Penicillin G Potassium 5 MILLUNITS in Sodium Chloride 0.9% 100 ML IV SCH (08:30)
[2019-06-18] MEDS ORDERED: fentaNYL/Bupivacaine in NS PF 2 MCG-0.125% 250 ML Premix EPIDUR PRN (12:00)
[2019-06-18] MEDS ORDERED: ePHEDrine 50 MG/ML SDV IVPUSH PRN (12:00)
[2019-06-18] MEDS ORDERED: diphenhydrAMINE 50 MG/ML SDV IVPUSH PRN (12:00)
[2019-06-18] MEDS ORDERED: fentaNYL 100 MCG/2 ML SDV EPIDUR PRN (12:00)
--- NOTE | 2019-06-18 12:11 | PCM.PREANE ---
Preanesthetic Assessment - Procedure Proposed Procedure: julianne - Anesthesia/Transfusion/Family Hx Anesthesia History: Prior Anesthesia Without Reaction Other Type of Anesthesia Reaction Comment: Pt reports she requires more anesthesia than normal Family History of Anesthesia Reaction: No Transfusion History: No Prior Transfusion(s) - Review of Systems General: No Symptoms Pulmonary: No Symptoms Cardiovascular: No Symptoms Gastrointestinal: No Symptoms Neurological: No Symptoms Other: Reports: None - Physical Assessment Vital Signs: Last Vital Signs Temp 96.9 F 06/18/19 07:30 Pulse 100 06/18/19 09:30 Resp 16 06/18/19 07:30 BP 133/80 06/18/19 07:52 Pulse Ox 98 06/18/19 07:52 Height: 5 ft 11 in Weight: 112.763 kg ASA Class: 2 Mental Status: Alert & Oriented x3 Airway Class: Mallampati = 1 Dentition: Reports: Normal Dentition Thyro-Mental Finger Breadths: 3 Mouth Opening Finger Breadths: 3 ROM/Head Extension: Full Lungs: Clear to Auscultation, Normal Respiratory Effort Cardiovascular: Regular Rate, Regular Rhythm - Lab Values: Laboratory Last Values WBC 7.79 K/mm3 (3.98-10.04) 06/18/19 07:50 RBC 4.26 M/mm3 (3.98-5.22) 06/18/19 07:50 Hgb 12.6 gm/dl (11.2-15.7) 06/18/19 07:50 Hct 35.9 % (34.1-44.9) 06/18/19 07:50 MCV 84.3 fl (79.4-94.8) 06/18/19 07:50 MCH 29.6 pg (25.6-32.2) 06/18/19 07:50 MCHC 35.1 g/dl (32.2-35.5) 06/18/19 07:50 RDW Std Deviation 43.3 fL (36.4-46.3) 06/18/19 07:50 Plt Count 197 K/mm3 (182-369) 06/18/19 07:50 MPV 10.4 fl (9.4-12.3) 06/18/19 07:50 Urine Color Yellow (Yellow) 06/18/19 08:57 Urine Appearance Clear (Clear) 06/18/19 08:57 Urine pH 6.0 (5.0-8.0) 06/18/19 08:57 Ur Specific [place] 1.015 (1.005-1.030) 06/18/19 08:57 Urine Protein Negative (Negative) 06/18/19 08:57 Urine Glucose (UA) Negative (Negative) 06/18/19 08:57 Urine Ketones Negative (Negative) 06/18/19 08:57 Urine Occult Blood Negative (Negative) 06/18/19 08:57 Urine Nitrite Negative (Negative) 06/18/19 08:57 Urine Bilirubin Negative (Negative) 06/18/19 08:57 Urine Urobilinogen 0.2 (0.2-1.0) 06/18/19 08:57 Ur Leukocyte Esterase Negative (Negative) 06/18/19 08:57 Urine RBC 0-5 /hpf (0-5) 06/18/19 08:57 Urine WBC 0-5 /hpf (0-5) 06/18/19 08:57 Ur Squamous Epith Cells Not seen /hpf (0-5) 06/18/19 08:57 Urine Bacteria Few /hpf (FEW) 06/18/19 08:57 Urine Mucus Few /hpf (FEW) 06/18/19 08:57 Blood Type O NEGATIVE 06/18/19 07:50 Gel Antibody Screen Positive 06/18/19 07:50 - Allergies Allergies/Adverse Reactions: Allergies Allergy/AdvReac Type Severity Reaction Status Date / Time No Known Allergies Allergy Verified 06/18/19 08:05 - Blood Blood Available: No - Acknowledgements Anesthesia Type Planned: Epidural Pt an Appropriate Candidate for the Planned Anesthesia: Yes Alternatives and Risks of Anesthesia Discussed w Pt/Guardian: Yes Pt/Guardian Understands and Agrees with Anesthesia Plan: Yes PreAnesthesia Questionnaire HEENT History: Reports: Other (See Below) Other HEENT History: Wears glasses Cardiovascular History: Reports: None Respiratory History: Reports: None Gastrointestinal History: Reports: None Genitourinary History: Reports: Other (See Below) Other Genitourinary History: HPV 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: , Spontaneous : 5 (40 weeks) Para: 3 Other OB/BYN History: History of retained placenta with first delivery Musculoskeletal History: Reports: None Psychiatric History: Reports: Eating Disorders Hematologic History: Reports: Anemia Oncologic (Cancer) History: Reports: None - Infectious Disease History Infectious Disease History: Reports: Human Papilloma Virus (HPV) - Past Surgical History HEENT Surgical History: Reports: Oral Surgery GI Surgical History: Reports: Colonoscopy Female Surgical History: Reports: Breast Reduction - SUBSTANCE USE Smoking Status *Q: Former Smoker (quit 11 years ago) Tobacco Use Within Last Twelve Months: No Second Hand Smoke Exposure: No Days Per Week of Alcohol Use: 0 Recreational Drug Use History: No - HOME MEDS Home Medications: Home Meds Ferrous Sulfate [Iron] 325 mg PO DAILY 06/18/19 [History] Pnv No.122/Iron/Folic Acid [ Multi Tablet] 1 each PO DAILY 06/18/19 [ History] - CURRENT (IN HOUSE) MEDS Current Meds: Current Medications Diphenhydramine HCl (Benadryl) 25 mg IVPUSH Q6H PRN PRN Reason: pruritis Ephedrine Sulfate (Ephedrine Sulfate) 5 mg IVPUSH ASDIRECTED PRN PRN Reason: Hypotension Fentanyl (Sublimaze) 100 mcg EPIDUR Q3H PRN PRN Reason: Pain Fentanyl/Bupivacaine HCl (Fentanyl/Bupivacaine/Ns 2 Mcg-0.125% 250 Ml) 2 mcg EPIDUR CONTINUOUS PRN PRN Reason: Pain Lactated Ringer's (Ringers, Lactated) 1,000 mls @ 100 mls/hr IV ASDIRECTED COBY Last Admin: 06/18/19 08:17 Dose: 100 mls/hr Oxytocin/Lactated Ringer's (Pitocin In Lr 10 Units/1,000 Ml) 10 unit in 1,000 mls @ 12 mls/hr IV TITRATE COBY; Protocol Oxytocin/Lactated Ringer's (Pitocin In Lr 10 Units/1,000 Ml) 10 unit in 1,000 mls @ 500 mls/hr IV .CONTINUOUS COBY Penicillin G Potassium 5 (millunits/ Sodium Chloride) 100 mls @ 55 mls/hr IV ONETIME COBY Last Admin: 06/18/19 08:17 Dose: 55 mls/hr Penicillin G Potassium 2.5 (millunits/ Sodium Chloride) 100 mls @ 55 mls/hr IV Q4H COBY Nalbuphine HCl (Nubain) 10 mg IVPUSH Q2H PRN PRN Reason: Pain Ondansetron HCl (Zofran) 4 mg IVPUSH Q4H PRN PRN Reason: Nausea/Vomiting Sodium Chloride (Saline Flush) 10 ml FLUSH ASDIRECTED PRN PRN Reason: Keep Vein Open
[2019-06-18] MEDS: Penicillin G Potassium 2.5 MILLUNITS in Sodium Chloride 0.9% 100 ML IV SCH ×2 (12:45→16:31)
--- NOTE | 2019-06-18 17:16 | PCM.PNLD ---
Labor Progress Note - VS & Meds Vital Signs: Last Vital Signs Temp 36.1 C 06/18/19 07:30 Pulse 100 06/18/19 09:30 Resp 16 06/18/19 07:30 BP 133/80 06/18/19 07:52 Pulse Ox 98 06/18/19 07:52 Active Medications: Current Medications Diphenhydramine HCl (Benadryl) 25 mg IVPUSH Q6H PRN PRN Reason: pruritis Ephedrine Sulfate (Ephedrine Sulfate) 5 mg IVPUSH ASDIRECTED PRN PRN Reason: Hypotension Fentanyl (Sublimaze) 100 mcg EPIDUR Q3H PRN PRN Reason: Pain Last Admin: 06/18/19 15:50 Dose: 100 mcg Fentanyl/Bupivacaine HCl (Fentanyl/Bupivacaine/Ns 2 Mcg-0.125% 250 Ml) 2 mcg EPIDUR CONTINUOUS PRN PRN Reason: Pain Last Admin: 06/18/19 15:51 Dose: 2 mcg Lactated Ringer's (Ringers, Lactated) 1,000 mls @ 100 mls/hr IV ASDIRECTED COBY Last Admin: 06/18/19 16:18 Dose: 100 mls/hr Oxytocin/Lactated Ringer's (Pitocin In Lr 10 Units/1,000 Ml) 10 unit in 1,000 mls @ 12 mls/hr IV TITRATE COBY; Protocol Last Titration: 06/18/19 16:32 Dose: 10 munits/min, 60 mls/hr Oxytocin/Lactated Ringer's (Pitocin In Lr 10 Units/1,000 Ml) 10 unit in 1,000 mls @ 500 mls/hr IV .CONTINUOUS COBY Penicillin G Potassium 5 (millunits/ Sodium Chloride) 100 mls @ 55 mls/hr IV ONETIME COBY Last Admin: 06/18/19 08:17 Dose: 55 mls/hr Penicillin G Potassium 2.5 (millunits/ Sodium Chloride) 100 mls @ 55 mls/hr IV Q4H COBY Last Admin: 06/18/19 16:31 Dose: 55 mls/hr Nalbuphine HCl (Nubain) 10 mg IVPUSH Q2H PRN PRN Reason: Pain Ondansetron HCl (Zofran) 4 mg IVPUSH Q4H PRN PRN Reason: Nausea/Vomiting Sodium Chloride (Saline Flush) 10 ml FLUSH ASDIRECTED PRN PRN Reason: Keep Vein Open - Uterine Contractions Uterine Monitoring Mode: External [place] Contraction Frequency (min): 3 Contraction Duration (sec): 60 Contraction Intensity: Moderate Uterine Resting Tone: Soft - Monitoring Monitor Mode: External Ultrasound Heart Rate (FHR) Baseline: 135 Heart Rate (FHR) Variability: Moderate (6-25 bmp) Accelerations: Present, 15x15 Decelerations: Variable Strip Review: Category II - Vaginal Exam Dilation (cm): 6 Effacement (Percent): 90 Station: 0 Cervical Position: Anterior Sterile Vaginal Exam Performed By: Haley Grace Vaginal Exam Comment: AROM performed for clear fluid. - Labor Progress (Free Text) Labor Progress: Pitocin was started at about 1415 after second dose of IV Pen G infused. Currently at 8 mu/min and had epidural placed and dosed about 1530. She is comfortable. She had been feeling pressure with her contractions prior to the epidural. Expect vaginal delivery shortly.
--- NOTE | 2019-06-18 18:39 | PCM.DEL ---
L & D Note - General Info Date of Service: 06/18/19 Mother's Due Date: 06/20/19 - Delivery Note Labor: Induced by Oxytocin Delivery Outcome: Livebirth Delivery Method: Spontaneous Vaginal Delivery-Single Infant Delivery Mode: Spontaneous Presentation: Right Occiput Anterior (GRANT) Nuchal Cord: Present, Reduced (1 loop, easily reduced) Prep: Povidone-Iodine (Betadine Anesthesia Type: Epidural Amniotic Fluid Description: Clear Episiotomy Type: None Laceration: Periurethral (small superficial tear, not bleeding and not sutured) Placenta: Intact, Spontaneous Cord: 3 Vessels Estimated Blood Loss: 200 Resuscitation Needed: No : Suctioned, Bulb Syringe, Stimulated, Warmed, [place] Used, Warmer Used Provider: Haley Grace Delivery Comments (Free Text/Narrative):: 33 yo A1 female at 39+5 weeks admitted for induction of labor. 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 She is admitted so that we can get at least 2 doses of IV antibiotic infused prior to delivery. SHe also has low back and sciatic pain and would not be able to push in the usual lithotomy position unless she has an epidural. Her labs reveal blood type O positive with initial antibody screen positive, but she had received Rhogam with her miscarriage in 08/2018. Her antibody screen on was negative and she received Rhogam on 04/24/19. Infectious disease tests were all negative. Her 1 hour glucola was 129 and A1C was 5.0 in January 2019. She was 3 cm dilated and 80% effaced on admission. She had her second dose of Pen G IV 2.5 MU and then pitocin was started at 1415 for induction. She started feeling pressure with her contractions and had an epidural placed at 1530. She was comfortable after the epidural. Contractions regular, every 2-3 minutes with pitocin at 8mu/min. At about 1700 I checked her and she was 6 cm, 90% effaced and bulging membranes. AROM was performed and small amount of clear fluid drained. She started feeling more pressure and was completely dilated at 1751 and we had her prepped and started pushing. SHe pushed very well and head delivered from GRANT position. There was 1 loop of nuchal cord that was easily reduced and then the shoulders delivered without difficulty. Time of delivery was 1759. It was a baby boy. He cried at the perineum with drying and stimulation. Mouth and nose were suctioned with bulb suction. Baby was placed skin to skin on mother's abdomen and once the cord stopped pulsating was clamped and cut. Baby weighed 4340 grams (9 lb 9oz). Placenta delivered spontaneously at 1803 and was intact and 3 vessels in the cord. There was a small periurethral tear, like a skin split but was not bleeding so was not sutured. Uterus firmed down nicely. Pitocin IV bolus started after delivery of baby. She did pass a couple of large clots, but was feeling fine and stable. Both Mom and baby were left in the delivery room in stable condition. Induction Criteria - Maya Score Maya Score Dilation: 3-4 cm Maya Score Effacement: >80% Maya Score Infant's Station: -2 Maya Score Consistency: Soft Maya Score Cervix Position: Anterior Maya Score Total: 10 Maya Score Presenting Part: Reports: Cephalic - Induction Gestational Age >/= 39 wks: Yes Estimated Pelvis: Reports: Adequate Reassuring Monitoring Strip: Yes Absence of Tachy Systole: Yes - General Info Date of Service: 06/18/19 Admission Dx/Problem (Free Text): Patient Status Order with Admit Dx/Problem 06/18/19 07:30 Patient Status [ADT] Routine Admission Diagnosis/Problem Admission Diagnosis/Problem Term Functional Status: Reports: Pain Controlled - Review of Systems General: Reports: No Symptoms HEENT: Reports: No Symptoms Pulmonary: Reports: No Symptoms Cardiovascular: Reports: No Symptoms Gastrointestinal: Reports: No Symptoms Genitourinary: Reports: No Symptoms Musculoskeletal: Reports: No Symptoms Skin: Reports: No Symptoms Neurological: Reports: No Symptoms Psychiatric: Reports: No Symptoms - Patient Data Vitals - Most Recent: Last Vital Signs Temp 36.1 C 06/18/19 07:30 Pulse 100 06/18/19 09:30 Resp 16 06/18/19 07:30 BP 133/80 06/18/19 07:52 Pulse Ox 98 06/18/19 07:52 Weight - Most Recent: 112.763 kg I&O - Last 24 Hours: Intake & Output 06/18/19 06/18/19 06/18/19 06:59 14:59 22:59 Intake Total 160 240 Balance 160 240 Lab Results Last 24 Hours: Laboratory Results - last 24 hr 06/18/19 06/18/19 06/18/19 Range/Units 07:50 07:50 07:50 WBC 7.79 (3.98-10.04) K/mm3 RBC 4.26 (3.98-5.22) M/mm3 Hgb 12.6 (11.2-15.7) gm/dl Hct 35.9 (34.1-44.9) % MCV 84.3 (79.4-94.8) fl MCH 29.6 (25.6-32.2) pg MCHC 35.1 (32.2-35.5) g/dl RDW Std Deviation 43.3 (36.4-46.3) fL Plt Count 197 (182-369) K/mm3 MPV 10.4 (9.4-12.3) fl Urine Color (Yellow) Urine Appearance (Clear) Urine pH (5.0-8.0) Ur Specific [place] (1.005-1.030) Urine Protein (Negative) Urine Glucose (UA) (Negative) Urine Ketones (Negative) Urine Occult Blood (Negative) Urine Nitrite (Negative) Urine Bilirubin (Negative) Urine Urobilinogen (0.2-1.0) Ur Leukocyte Esterase (Negative) Urine RBC (0-5) /hpf Urine WBC (0-5) /hpf Ur Squamous Epith Cells (0-5) /hpf Urine Bacteria (FEW) /hpf Urine Mucus (FEW) /hpf RPR Non-reactive (NONREACTIVE) Blood Type O NEGATIVE Gel Antibody Screen Positive 06/18/19 Range/Units 08:57 WBC (3.98-10.04) K/mm3 RBC (3.98-5.22) M/mm3 Hgb (11.2-15.7) gm/dl Hct (34.1-44.9) % MCV (79.4-94.8) fl MCH (25.6-32.2) pg MCHC (32.2-35.5) g/dl RDW Std Deviation (36.4-46.3) fL Plt Count (182-369) K/mm3 MPV (9.4-12.3) fl Urine Color Yellow (Yellow) Urine Appearance Clear (Clear) Urine pH 6.0 (5.0-8.0) Ur Specific [place] 1.015 (1.005-1.030) Urine Protein Negative (Negative) Urine Glucose (UA) Negative (Negative) Urine Ketones Negative (Negative) Urine Occult Blood Negative (Negative) Urine Nitrite Negative (Negative) Urine Bilirubin Negative (Negative) Urine Urobilinogen 0.2 (0.2-1.0) Ur Leukocyte Esterase Negative (Negative) Urine RBC 0-5 (0-5) /hpf Urine WBC 0-5 (0-5) /hpf Ur Squamous Epith Cells Not seen (0-5) /hpf Urine Bacteria Few (FEW) /hpf Urine Mucus Few (FEW) /hpf RPR (NONREACTIVE) Blood Type Gel Antibody Screen Med Orders - Current: Current Medications Diphenhydramine HCl (Benadryl) 25 mg IVPUSH Q6H PRN PRN Reason: pruritis Ephedrine Sulfate (Ephedrine Sulfate) 5 mg IVPUSH ASDIRECTED PRN PRN Reason: Hypotension Fentanyl (Sublimaze) 100 mcg EPIDUR Q3H PRN PRN Reason: Pain Last Admin: 06/18/19 15:50 Dose: 100 mcg Fentanyl/Bupivacaine HCl (Fentanyl/Bupivacaine/Ns 2 Mcg-0.125% 250 Ml) 2 mcg EPIDUR CONTINUOUS PRN PRN Reason: Pain Last Admin: 06/18/19 15:51 Dose: 2 mcg Lactated Ringer's (Ringers, Lactated) 1,000 mls @ 100 mls/hr IV ASDIRECTED COBY Last Admin: 06/18/19 16:18 Dose: 100 mls/hr Oxytocin/Lactated Ringer's (Pitocin In Lr 10 Units/1,000 Ml) 10 unit in 1,000 mls @ 12 mls/hr IV TITRATE COBY; Protocol Last Titration: 06/18/19 16:32 Dose: 10 munits/min, 60 mls/hr Oxytocin/Lactated Ringer's (Pitocin In Lr 10 Units/1,000 Ml) 10 unit in 1,000 mls @ 500 mls/hr IV .CONTINUOUS COBY Penicillin G Potassium 5 (millunits/ Sodium Chloride) 100 mls @ 55 mls/hr IV ONETIME COBY Last Admin: 06/18/19 08:17 Dose: 55 mls/hr Penicillin G Potassium 2.5 (millunits/ Sodium Chloride) 100 mls @ 55 mls/hr IV Q4H COBY Last Admin: 06/18/19 16:31 Dose: 55 mls/hr Nalbuphine HCl (Nubain) 10 mg IVPUSH Q2H PRN PRN Reason: Pain Ondansetron HCl (Zofran) 4 mg IVPUSH Q4H PRN PRN Reason: Nausea/Vomiting Sodium Chloride (Saline Flush) 10 ml FLUSH ASDIRECTED PRN PRN Reason: Keep Vein Open - Exam General: Alert, Oriented HEENT: Pupils Equal, Pupils Reactive Neck: Supple Lungs: Normal Respiratory Effort Cardiovascular: Regular Rate, Regular Rhythm GI/Abdominal Exam: Normal Bowel Sounds Back Exam: Normal Inspection Extremities: Normal Inspection Skin: Warm, Dry, Intact Neurological: No New Focal Deficit Psy/Mental Status: Alert, Normal Affect, Normal Mood - Problem List & Annotations (1) 39 weeks gestation of SNOMED Code(s): 89922115 Code(s): Z3A.39 - 39 WEEKS GESTATION OF Status: Acute Current Visit: Yes (2) Elective induction of labor planned SNOMED Code(s): 236839213 Code(s): DPN4977 - Status: Acute Current Visit: No (3) Rh negative state in antepartum period SNOMED Code(s): 147954783 Code(s): O09.899 - SUPERVISION OF OTHER HIGH RISK PREGNANCIES, UNSP TRIMESTER Status: Acute Current Visit: No (4) Normal spontaneous vaginal delivery SNOMED Code(s): 81893920, 285919350 Code(s): O80 - ENCOUNTER FOR FULL-TERM UNCOMPLICATED DELIVERY Status: Acute Current Visit: Yes - Problem List Review Problem List Initiated/Reviewed/Updated: Yes - My Orders Last 24 Hours: My Active Orders 06/18/19 07:30 Patient Status [ADT] Routine Activity as Tolerated [RC] PFP Communication Order [RC] ASDIRECTED Notify Provider [RC] PFP Notify Provider [RC] PRN Vital Signs [RC] PER UNIT ROUTINE Lactated Ringers [Ringers, Lactated] 1,000 ml IV ASDIRECTED Nalbuphine [Nubain] 10 mg IVPUSH Q2H PRN Ondansetron [Zofran] 4 mg IVPUSH Q4H PRN Oxytocin/Lactated Ringers [Pitocin in LR 10 Units/1,000 ML] 10 unit in 1,000 ml IV .CONTINUOUS Sodium Chloride 0.9% [Saline Flush] 10 ml FLUSH ASDIRECTED PRN Electronic Heart Tones Ext w TOCO [WOMSER] Routine Electronic Heart Tones Internal [WOMSER] Per Unit Routine Peripheral IV Insertion Adult [OM.PC] Routine Resuscitation Status Routine 06/18/19 07:31 Peripheral IV Care [RC] Q2HR 06/18/19 07:50 ANTIBODY IDENTIFICATION [BBK] Stat TYPE AND SCREEN [BBK] Stat 06/18/19 08:30 Penicillin G Potassium [Pfizerpen] 5 millunits Sodium Chloride 0.9% [Normal Saline] 100 ml IV ONETIME 06/18/19 12:00 Oxytocin/Lactated Ringers [Pitocin in LR 10 Units/1,000 ML] 10 unit in 1,000 ml IV TITRATE 06/18/19 12:30 Penicillin G Potassium [Pfizerpen] 2.5 millunits Sodium Chloride 0.9% [Normal Saline] 100 ml IV Q4H 06/18/19 18:23 Patient Status Manage Transfer [TRANSFER] Routine 06/18/19 Breakfast Regular Diet [DIET] - Assessment Assessment:: of term baby boy. GBS adequately covered. Plans to breastfeed but typically it takes a long time for her milk to come in. - Plan Plan:: 33 yo A1 female and 39+5 weeks admitted for induction of labor. She has a history of quick labors and with last developing GBS meningitis, we want to get at least 2 doses of IV Pen G for GBS prophylaxis infused before delivery. Cervix 3 cm, 80% effaced, vertex presentation on admit. Plan: Start Pen G IV 5MU and then 2.5 MU in 4 hours. After second dose infused , will start pitocin for induction and plan early epidural so that patient will be comfortable to push. Routine care. She has been passing big clots, but uterus is firm. Will continue pitocin, and switch to 20 units/litre and monitor closely. Will add other agents for uterotonic agent if bleeding continues heavy. Will check CBC in am. support.
[2019-06-18] MEDS ORDERED: Oxytocin/Lactated Ringers 20 UNIT/1,000 ML BAG IV SCH (18:45)
[2019-06-18] MEDS ORDERED: Acetaminophen 325 MG Tab PO PRN (19:33)
[2019-06-18] MEDS ORDERED: Benzocaine/Menthol 20%-0.5% Spray 56 GM Canister TOP PRN (19:33)
[2019-06-18] MEDS ORDERED: Docusate Sodium 100 MG Cap PO PRN (19:33)
[2019-06-18] MEDS ORDERED: Simethicone 80 MG Tab.Chew PO PRN (19:33)
[2019-06-18] MEDS: Ibuprofen 800 MG Tab PO PRN (22:58)
[2019-06-18] MEDS: Witch Hazel Medicated Pads 40/Jar TOP PRN (23:00)
[2019-06-19] MEDS: Ibuprofen 800 MG Tab PO PRN (05:56)
--- NOTE | 2019-06-19 08:55 | PCM.DCSUM1 ---
Discharge Summary - Hospital Course Free Text/Narrative:: 33 yo A1 female at 39+5 weeks admitted for induction of labor. 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 She is admitted so that we can get at least 2 doses of IV antibiotic infused prior to delivery. SHe also has low back and sciatic pain and would not be able to push in the usual lithotomy position unless she has an epidural. Her labs reveal blood type O positive with initial antibody screen positive, but she had received Rhogam with her miscarriage in 08/2018. Her antibody screen on was negative and she received Rhogam on 04/24/19. Infectious disease tests were all negative. Her 1 hour glucola was 129 and A1C was 5.0 in January 2019. She was 3 cm dilated and 80% effaced on admission. She had her second dose of Pen G IV 2.5 MU and then pitocin was started at 1415 for induction. She started feeling pressure with her contractions and had an epidural placed at 1530. She was comfortable after the epidural. Contractions regular, every 2-3 minutes with pitocin at 8mu/min. At about 1700 I checked her and she was 6 cm, 90% effaced and bulging membranes. AROM was performed and small amount of clear fluid drained. She started feeling more pressure and was completely dilated at 1751 and we had her prepped and started pushing. She pushed very well and head delivered from GRANT position. There was 1 loop of nuchal cord that was easily reduced and then the shoulders delivered without difficulty. Time of delivery was 1759. It was a baby boy. He cried at the perineum with drying and stimulation. Mouth and nose were suctioned with bulb suction. Baby was placed skin to skin on mother's abdomen and once the cord stopped pulsating was clamped and cut. Baby weighed 4340 grams (9 lb 9oz). Placenta delivered spontaneously at 1803 and was intact and 3 vessels in the cord. There was a small periurethral tear, like a skin split but was not bleeding so was not sutured. Uterus firmed down nicely. Pitocin IV bolus started after delivery of baby. She did pass a couple of large clots, but was feeling fine and stable. Both Mom and baby were left in the delivery room in stable condition. WE ran 20 units of pitocin in a litre after the first litre of pitocin infused and her bleeding slowed and has been stable since then. This am her bleeding is lights and only passing about dime sized clots. She is getting baby to breast and also bottle feeding due to history of breast reduction surgery. She knows that it takes a long time for her milk to come in and the right breast does not produce much milk. Her mood is good and she is ambulating and has a good appetite. Denies pain in her calves. Denies headache. Her back and hips are not sore. She is anxious to get home to be with her other 3 young children. Diagnosis: Stroke: No Modified Ray Scale: No Symptoms at All Modified Ray Scale Score: 0 - Discharge Data Discharge Date: 06/19/19 Discharge Disposition: Home, Self-Care 01 Condition: Good - Referral to Home Health Primary Care Physician: Haley Grace MD - Discharge Diagnosis/Problem(s) (1) 39 weeks gestation of SNOMED Code(s): 29945831 ICD Code: Z3A.39 - 39 WEEKS GESTATION OF Status: Resolved Current Visit: Yes (2) Rh negative state in antepartum period SNOMED Code(s): 771591889 ICD Code: O09.899 - SUPERVISION OF OTHER HIGH RISK PREGNANCIES, UNSP TRIMESTER Status: Acute Current Visit: No (3) Normal spontaneous vaginal delivery SNOMED Code(s): 29221914, 007131235 ICD Code: O80 - ENCOUNTER FOR FULL-TERM UNCOMPLICATED DELIVERY Status: Acute Current Visit: Yes - Patient Instructions Diet: Regular Diet as Tolerated Feeding Instructions: Try to feed baby at least every 2 to 3 hours or more frequent on demand. Activity: As Tolerated Driving: May Drive Today Showering/Bathing: May Shower Notify Provider of: Fever, Increased Pain, Swelling and Redness, Drainage, Nausea and/or Vomiting - Discharge Plan *PRESCRIPTION DRUG MONITORING PROGRAM REVIEWED*: No *COPY OF PRESCRIPTION DRUG MONITORING REPORT IN PATIENT YAMEL: No Home Medications: Home Meds Ferrous Sulfate [Iron] 325 mg PO DAILY 06/18/19 [History] Pnv No.122/Iron/Folic Acid [ Multi Tablet] 1 each PO DAILY 06/18/19 [ History] Acetaminophen [Tylenol] 650 mg PO Q4H PRN tablet 06/19/19 [Rx] Benzocaine/Menthol [Dermoplast Pain Relief [place]] 1 applic TOP ASDIRECTED PRN canister 06/19/19 [Rx] Docusate Sodium [Colace] 100 mg PO BID PRN cap 06/19/19 [Rx] Ibuprofen [Motrin] 800 mg PO Q6H PRN tablet 06/19/19 [Rx] Simethicone 80 mg PO Q4H PRN tab.chew 06/19/19 [Rx] Yossi [place] [Tucks] 1 pad TOP ASDIRECTED PRN pad 06/19/19 [Rx] Oxygen Therapy Mode: Room Air Patient Handouts: Rooming-In With Your Elsa, Home Care Instructions for Mom , Vaginal Delivery, Care After - Discharge Summary/Plan Comment DC Time >30 min.: No Discharge Summary/Plan Comment: Assessment: Normal course following . Bleeding has slowed, pain controlled with ibuprofen. Patient is working on and will start pumping as well to help milk to come in. Plan: Routine instructions. Follow up in the clinic in 6 weeks for check. - General Info Date of Service: 06/19/19 Admission Dx/Problem (Free Text: Patient Status Order with Admit Dx/Problem 06/18/19 07:30 Patient Status [ADT] Routine Admission Diagnosis/Problem Admission Diagnosis/Problem Term Functional Status: Reports: Pain Controlled, Tolerating Diet, Ambulating, Urinating - Review of Systems General: Reports: No Symptoms HEENT: Reports: No Symptoms Pulmonary: Reports: No Symptoms Cardiovascular: Reports: No Symptoms Gastrointestinal: Reports: No Symptoms Genitourinary: Reports: No Symptoms Musculoskeletal: Reports: No Symptoms Skin: Reports: No Symptoms Neurological: Reports: No Symptoms Psychiatric: Reports: No Symptoms - Patient Data Vitals - Most Recent: Last Vital Signs Temp 36.6 C 06/19/19 05:50 Pulse 79 06/19/19 05:50 Resp 17 06/19/19 05:50 BP 120/67 06/19/19 05:50 Pulse Ox 95 06/19/19 05:50 Weight - Most Recent: 112.763 kg I&O - Last 24 hours: Intake & Output 06/18/19 06/19/19 06/19/19 22:59 06:59 14:59 Intake Total 3740 12 Balance 3740 12 Lab Results - Last 24 hrs: Laboratory Results - last 24 hr 06/18/19 06/18/1919 Range/Units 07:50 07:50 08:57 WBC (3.98-10.04) K/mm3 RBC (3.98-5.22) M/mm3 Hgb (11.2-15.7) gm/dl Hct (34.1-44.9) % MCV (79.4-94.8) fl MCH (25.6-32.2) pg MCHC (32.2-35.5) g/dl RDW Std Deviation (36.4-46.3) fL Plt Count (182-369) K/mm3 MPV (9.4-12.3) fl Urine Color Yellow (Yellow) Urine Appearance Clear (Clear) Urine pH 6.0 (5.0-8.0) Ur Specific [place] 1.015 (1.005-1.030) Urine Protein Negative (Negative) Urine Glucose (UA) Negative (Negative) Urine Ketones Negative (Negative) Urine Occult Blood Negative (Negative) Urine Nitrite Negative (Negative) Urine Bilirubin Negative (Negative) Urine Urobilinogen 0.2 (0.2-1.0) Ur Leukocyte Esterase Negative (Negative) Urine RBC 0-5 (0-5) /hpf Urine WBC 0-5 (0-5) /hpf Ur Squamous Epith Cells Not seen (0-5) /hpf Urine Bacteria Few (FEW) /hpf Urine Mucus Few (FEW) /hpf RPR Non-reactive (NONREACTIVE) Blood Type O NEGATIVE Gel Antibody Screen Positive Screen RhIG Candidate? Rhogam Indicated 06/18/19 06/19/19 Range/Units 20:04 06:05 WBC 8.57 (3.98-10.04) K/mm3 RBC 3.77 L (3.98-5.22) M/mm3 Hgb 11.1 L D (11.2-15.7) gm/dl Hct 32.3 L (34.1-44.9) % MCV 85.7 (79.4-94.8) fl MCH 29.4 (25.6-32.2) pg MCHC 34.4 (32.2-35.5) g/dl RDW Std Deviation 43.1 (36.4-46.3) fL Plt Count 184 (182-369) K/mm3 MPV 10.8 (9.4-12.3) fl Urine Color (Yellow) Urine Appearance (Clear) Urine pH (5.0-8.0) Ur Specific [place] (1.005-1.030) Urine Protein (Negative) Urine Glucose (UA) (Negative) Urine Ketones (Negative) Urine Occult Blood (Negative) Urine Nitrite (Negative) Urine Bilirubin (Negative) Urine Urobilinogen (0.2-1.0) Ur Leukocyte Esterase (Negative) Urine RBC (0-5) /hpf Urine WBC (0-5) /hpf Ur Squamous Epith Cells (0-5) /hpf Urine Bacteria (FEW) /hpf Urine Mucus (FEW) /hpf RPR (NONREACTIVE) Blood Type O NEGATIVE Gel Antibody Screen Positive Screen 0 ros/5 flds - neg RhIG Candidate? Yes Rhogam Indicated Yes, baby rh pos H Med Orders - Current: Current Medications Acetaminophen (Tylenol) 650 mg PO Q4H PRN PRN Reason: mild pain or fever Benzocaine/Menthol (Dermoplast Pain Relief [place]) 0 gm TOP ASDIRECTED PRN PRN Reason: Perineal Comfort Measure Docusate Sodium (Colace) 100 mg PO BID PRN PRN Reason: Constipation Last Admin: 06/18/19 23:00 Dose: 100 mg Oxytocin/Lactated Ringer's (Pitocin In Lr 20 Units/1,000 Ml) 20 unit in 1,000 mls @ 750 mls/hr IV TITRATE COBY; Protocol Last Admin: 06/18/19 19:01 Dose: 750 mls/hr Ibuprofen (Motrin) 800 mg PO Q6H PRN PRN Reason: Mild pain or fever Last Admin: 06/19/19 05:56 Dose: 800 mg Simethicone (Simethicone) 80 mg PO Q4H PRN PRN Reason: Gas Last Admin: 06/18/19 23:00 Dose: 80 mg [place] (Tucks) 1 pad TOP ASDIRECTED PRN PRN Reason: Perineal Comfort Measure Last Admin: 06/18/19 23:00 Dose: 1 applic Discontinued Medications Diphenhydramine HCl (Benadryl) 25 mg IVPUSH Q6H PRN PRN Reason: pruritis Ephedrine Sulfate (Ephedrine Sulfate) 5 mg IVPUSH ASDIRECTED PRN PRN Reason: Hypotension Fentanyl (Sublimaze) 100 mcg EPIDUR Q3H PRN PRN Reason: Pain Last Admin: 06/18/19 15:50 Dose: 100 mcg Fentanyl/Bupivacaine HCl (Fentanyl/Bupivacaine/Ns 2 Mcg-0.125% 250 Ml) 2 mcg EPIDUR CONTINUOUS PRN PRN Reason: Pain Last Admin: 06/18/19 15:51 Dose: 2 mcg Lactated Ringer's (Ringers, Lactated) 1,000 mls @ 100 mls/hr IV ASDIRECTED COBY Last Admin: 06/18/19 16:18 Dose: 100 mls/hr Oxytocin/Lactated Ringer's (Pitocin In Lr 10 Units/1,000 Ml) 10 unit in 1,000 mls @ 12 mls/hr IV TITRATE COBY; Protocol Last Titration: 06/18/19 18:00 Dose: 999 mls/hr Oxytocin/Lactated Ringer's (Pitocin In Lr 10 Units/1,000 Ml) 10 unit in 1,000 mls @ 500 mls/hr IV .CONTINUOUS COBY Penicillin G Potassium 5 (millunits/ Sodium Chloride) 100 mls @ 55 mls/hr IV ONETIME COBY Last Admin: 06/18/19 08:17 Dose: 55 mls/hr Penicillin G Potassium 2.5 (millunits/ Sodium Chloride) 100 mls @ 55 mls/hr IV Q4H COBY Last Admin: 06/18/19 16:31 Dose: 55 mls/hr Nalbuphine HCl (Nubain) 10 mg IVPUSH Q2H PRN PRN Reason: Pain Ondansetron HCl (Zofran) 4 mg IVPUSH Q4H PRN PRN Reason: Nausea/Vomiting Sodium Chloride (Saline Flush) 10 ml FLUSH ASDIRECTED PRN PRN Reason: Keep Vein Open - Exam General: Reports: Alert, Oriented HEENT: Reports: Pupils Equal, Pupils Reactive, Mucous Membr. Moist/[place] Neck: Reports: Supple Lungs: Reports: Normal Respiratory Effort Cardiovascular: Reports: Regular Rate, Regular Rhythm GI/Abdominal Exam: Normal Bowel Sounds, Soft, Non-Tender, No Organomegaly, No Distention, No Abnormal Bruit, No Mass, Pelvis Stable (Female) Exam: Normal External Exam, Vaginal Bleeding (Light rubra) Rectal (Female) Exam: Deferred (No tenderness over epidural site) Back Exam: Reports: Normal Inspection, Full Range of Motion Extremities: Normal Inspection, Normal Range of Motion, Non-Tender, No Pedal Edema, Normal Capillary Refill Skin: Reports: Warm, Dry, Intact Neurological: Reports: No New Focal Deficit Psy/Mental Status: Reports: Alert, Normal Affect, Normal Mood
--- NOTE | 2019-06-19 09:07 | PCM48HPAN ---
Post Anesthesia Note - EVALUATION WITHIN 48HRS OF ANESTHETIC Vital Signs in Normal Range: Yes Patient Participated in Evaluation: Yes Respiratory Function Stable: Yes Airway Patent: Yes Cardiovascular Function Stable: Yes Hydration Status Stable: Yes Pain Control Satisfactory: Yes Nausea and Vomiting Control Satisfactory: Yes Mental Status Recovered: Yes Vital Signs: Last Vital Signs Temp 36.6 C 06/19/19 05:50 Pulse 79 06/19/19 05:50 Resp 17 06/19/19 05:50 BP 120/67 06/19/19 05:50 Pulse Ox 95 06/19/19 05:50
[2019-06-19 09:51] VITALS: BP 128/68; PULSE 97
[2019-06-19] MEDS: Witch Hazel Medicated Pads 40/Jar TOP PRN (17:53)
== END 2019-06-19 19:15 | disposition home or self-care (01) | DRG 807 ==
LOC: OBSVTOIN 07:07 → JD.OB 07:07
PROVIDERS: ADMIT Family Medicine; ATTEND Family Medicine
PROC: 10E0XZZ Delivery of Products of Conception, External Approach (ICD-10-PCS; principal; 2019-06-18)
PROC: 3E033VJ Introduction of Other Hormone into Peripheral Vein, Percutaneous Approach (ICD-10-PCS; 2019-06-18)
PROC: 0UQMXZZ Repair Vulva, External Approach (ICD-10-PCS; 2019-06-18)
PROC: 10907ZC Drainage of Amniotic Fluid, Therapeutic from Products of Conception, Via Natural or Artificial Opening (ICD-10-PCS; 2019-06-18)
DX: O69.81X0 Labor and delivery complicated by cord around neck, without compression, not applicable or unspecified (principal); O71.82 Other specified trauma to perineum and vulva; O99.02 Anemia complicating childbirth; D64.9 Anemia, unspecified; Z3A.39 39 weeks gestation of pregnancy; Z37.0 Single live birth
CPT/HCPCS: 01967; 36415; 59025; 59409; 81001; 85027; 85461; 86592; 86850; 86870; 86900; 86901; A9270-GY; J2540; J2590; J2790; J3010; J3490; J7030; J7120